=== PATIENT | male | born 1970 | race African-American/Black ===

== ENCOUNTER → 2023-04-27 10:18 | Outpatient (CLI) | payer OTHER, SELFPAY ==
--- NOTE | 2023-04-27 10:21 | DI.ECHO.S_ITS ---
[facility]---------[facility] +---------+ : : [address] : [address] [address] : : : : [id number] : : : : Phone: [phone]+ Echocardiogram Report + + :Name: NIEVES CARLTON Study Date: 04/27/2023 Height: 71 in : :[facility] ReadingLocation: Weight: 238 lb : : Gender: Male BSA: 2.3 m2 : :: 1970 Age: 52 yrs BP: 129/93 mmHg: :Reason For Study: CHEST PAIN : :Ordering Physician: TONYA NAVARRETE : :TREATMENT COUNSELOR-C Performed By: Ronel Walton : :Referring: TONYA NAVARRETE TREATMENT COUNSELOR-C : + + Interpretation Summary Normal both left and right ventricle size and function. The ejection fraction is estimated to be 55-60%. No significant valvular abnormality. Procedure: A two-dimensional transthoracic echocardiogram with color flow and Doppler was performed. The study quality was technically adequate. There is no prior echocardiogram noted for this patient. The patient was in sinus rhythm with heart rates between 63-84 bpm during the exam. Left Ventricle: The left ventricle is normal in size and wall thickness. The ejection fraction is estimated to be 55-60%. There are no focal wall motion abnormalities. Diastolic parameters suggest probable normal left ventricular diastolic function and normal filling pressures. Right Ventricle: The right ventricle is normal in size and function. Atria: The left atrial size is normal. Right atrial size is normal. There is no Doppler evidence for an interatrial shunt. Mitral Valve: The mitral valve is normal in structure and function. There is trace mitral regurgitation. Aortic Valve: The aortic valve is trileaflet. The aortic valve opens well. There is no aortic valve stenosis. No aortic regurgitation is present. Tricuspid Valve: The tricuspid valve is normal in structure and function. There is trace tricuspid regurgitation. Pulmonic Valve: The pulmonic valve leaflets are thin and pliable; valve motion is normal. There is mild pulmonic regurgitation. Great Vessels: The aortic root is normal size. The dimensions of the ascending aorta are normal. The IVC is of normal diameter and collapses greater than 50% with a sniff. This suggests a low right atrial pressure of 3 mm Hg. Pericardium/ Pleura There is no pericardial effusion. There is no pleural effusion. MMode/2D Measurements & Calculations LVIDd: 5.0 cm LVOT diam: 2.1 cm LVIDs: 3.9 cm Ao root diam: 3.2 cm FS: 23.5 % asc Aorta Diam: 3.0 cm EPSS: 0.92 cm Ao Arch Diam (Prox Trans): 2.9 cm IVSd: 0.78 cm LVPWd: 0.80 cm LV perez. diameter/BSA (cm/m^2): 2.2 LV sys. diameter/BSA (cm/m^2): 1.7 LA A2 area: 16.3 cm2 RA long axis: 4.9 cm LA A4 area: 13.3 cm2 RA area: 13.8 cm2 LA length (vol): 5.1 cm RA vol: 32.8 ml LA vol: 35.8 ml RA : 14.5 ml/m2 LA vol index: 15.8 ml/m2 IVC diam: 1.0 cm RVD1 (basal): 3.7 cm RVD2 (mid): 2.7 cm TAPSE: 1.8 cm Doppler Measurements & Calculations Ao V2 max: 138.9 cm/sec LVOT Max Onofre: 95.8 cm/sec Ao V2 mean: 103.8 cm/sec LV V1 max P.7 mmHg Ao max P.7 mmHg LV V1 VTI: 19.3 cm Ao mean P.6 mmHg CHARIS(I,D): 2.6 cm2 Ao V2 VTI: 26.9 cm CHARIS(V,D): 2.5 cm2 sev ratio: 0.72 CHARIS indexed to BSA (cm^2/m^2): 1.1 MV E max onofre: 83.6 cm/sec PA V2 max: 100.1 cm/sec MV A max onofre: 68.4 cm/sec PA V2 mean: 76.4 cm/sec MV E/A: 1.2 PA mean P.5 mmHg Med Peak E' Onofre: 7.7 cm/sec PA pr(Accel): 37.9 mmHg E/E' med: 10.9 Lat Peak E' Onofre: 10.7 cm/sec E/E' lat: 7.8 E/e' average: 9.3 MV dec time: 0.21 sec SV(LVOT): 68.9 ml Electronically signed by: Eliazar Umana on Reading Physician:04/27/2023 01:07 PM
== END ==
PROVIDERS: Referring Provider Nurse Practitioner; Visit Provider Nurse Practitioner
DX: R07.9 Chest pain, unspecified (principal); I37.1 Nonrheumatic pulmonary valve insufficiency
CPT/HCPCS: 93306